=== PATIENT | female | born 1995 | race Hispanic/Latino ===

== ENCOUNTER 2018-04-18 15:47 | Day surgery (SDC) | payer OTHER ==
[2018-04-18 16:18] VITALS: BMI 35.3
--- NOTE | 2018-04-18 16:30 | PDOC.LDHP ---
Labor and Delivery H&P Chief complaint: other ( decels during NST in clinic) HPI: Pt is 22 yo with di-di twins at 37.0wks by LMP and 13.5 wk US presented for routine BPP/NST at clinic. Found to have two decels in baby A with one being a late decel and another more difficult to determine as the tracing cut off during the decel. No changes in movement. Denies vaginal bleeding or loss of fluid. Feeling occasional lower abdominal cramping but nothing sustained. She was recently complaining of itching with normal bile acid levels among other labs. She is scheduled for C/S next week. Current gestational age (weeks): 37 Due date: 05/08/18 Dating criteria: last menstrual period, first trimester ultrasound Grav: 2 Para: 1 OB History Details: One prior vaginal delivery in ' at term; uncomplicated Current complications: di/di twins, breech (Twin A), other (anemia in preg) Abnormal US findings: Yes (Twin A is breech) Past Medical History: none Current medications: pre- vitamins, iron Previous surgical history: none Allergies/Adverse Reactions: Allergies Allergy/AdvReac Type Severity Reaction Status Date / Time No Known Allergies Allergy Verified 04/18/18 16:12 Social history: none - Physical Exam Vital signs reviewed and normal: yes General: NAD, resting Heart: other (3/6 systolic murmur (chronic)) Lungs: nonlabored breathing Abdomen: gravid Extremeties: no edema FHT: category 1 (Baby A and B), variability present [place] contractions every: none - OB Labs Blood type: A RH: positive Antibody Screen: negative HIV: negative RPR: negative HEPSAg: negative 1 hour GCT: negative GBS: negative Urine drug screen: not done Rubella: immune Additional Labs: bile acids neg; GC/C neg - Assessment decelerations - Plan Plan: observation in L&D (BPP not performed in clinic due to 2 decels in Twin A. Will obtain that and order NST/continuous monitoring to ensure no issues. NST reactive. D/c pending BPP and no further decels.)
--- NOTE | 2018-04-18 17:20 | ULT ---
ULTRASOUND BIOPHYSICAL PROFILE 04/18/18 HISTORY: Decreased movement and decelerations. FINDINGS: A single live intrauterine gestation is seen with a heart rate of 168 beats per minute. BRAIN neto sures 10.7 cm. position is transverse. OB BIOPHYSICAL PROFILE: tone: 2 breathin movement: 2 Amniotic fluid: 2 IMPRESSION: Ultrasound biophysical profile score is 8 out of 8. POS: [facility]
== END 2018-04-18 17:14 | disposition home or self-care (01) ==
LOC: L&D/OP 15:47
PROVIDERS: ATTEND Family Medicine
DX: O36.8332 Maternal care for abnormalities of the fetal heart rate or rhythm, third trimester, fetus 2 (principal); Z3A.37 37 weeks gestation of pregnancy
CPT/HCPCS: 59025; 76819; 99281

== ENCOUNTER 2018-04-24 01:37 | Inpatient (IN) | payer OTHER ==
--- NOTE | 2018-04-23 20:06 | PDOC.LDHP ---
Labor and Delivery H&P Chief complaint: contractions, loss of fluid Current gestational age (weeks): 38 (0) - Physical Exam General: NAD, breathing through contractions Heart: RRR Lungs: CTAB Abdomen: gravid Extremeties: no edema FHT: category 2, variable decelerations, variability present [place] contractions every: 2-4min - Vaginal Exam cm dilated: 1 Effacement: 0% Station: -3 - Assessment L&D Assessment: term rupture in membranes at 38.0 by LMP/13w u/s was scheduled for section today but came in with ROM and ctx q2-4min. Plan for urgent csection. - Plan Plan: to OR for section <Elza Herzog 04/24/18 08:17> <Leonard Cordero 04/24/18 08:17> HPI: Francheska Gagnon is a 23 yo di/di twin gestation @ 38.0wks by a 13.5 wk US presents with fluid loss since 0100 today and contractions since 0200 every 203 minutes. She was scheduled for a primary csection 2/2 breech and transverse presentation this morning at 0730. Endorses mild vaginal bleeding and good movement. Denies vaginal discharge. Current gestational age (weeks): 37 (37.6) Due date: 05/08/18 Dating criteria: last menstrual period (c/w 13.5wk US2) Grav: 2 Para: 1 (1001) OB History Details: Prior delivery on 01/23/2014: , male, no complications, 7 lbs 3 ounces, 8 hours of labor at [facility], delivered at 38 weeks gestation [employer] hx: NILM pap smear 11/2017 Current complications: di/di twins, other (anemia of ) Abnormal US findings: No (Baby A-transverse with posterior placenta; Baby B- transverse/anterior plac ) Past Medical History: none Current medications: pre-trini vitamins, iron Previous surgical history: none Social history: none - Physical Exam Vital signs reviewed and normal: yes General: NAD, breathing through contractions Heart: RRR Lungs: CTAB Abdomen: gravid Extremeties: no edema FHT: category 2, variable decelerations, variability present - OB Labs Blood type: A RH: positive Antibody Screen: negative HIV: negative RPR: negative HEPSAg: negative 1 hour GCT: negative GBS: negative Urine drug screen: not done Rubella: immune Additional Labs: bile acids negative; Gonorrhea/chlamydia negative - Assessment L&D Assessment: term rupture in membranes - Plan Plan: to OR for section -: 23 yo di di twin gestation presents with loss of fluid and contractions @ 38wks by a 13.5 wk US admitted for a primary section. 1.)Di Di twin gestation, term- -admit to OR for urgent cs. Ampicillin to be given prior to delivery. Will order an initial cbc with repeat post delivery. Will plan for routine cs care. Risk and benefits of procedure explained to pt; pt understood. Mom plans to breastfeed. 2.)Anemia of - -Will order an initial cbc with repeat post delivery -Will restart iron and bowel regimen post delivery <Aishwarya Noonan - Last Filed: 04/24/18 08:17> Allergies/Adverse Reactions: Allergies Allergy/AdvReac Type Severity Reaction Status Date / Time No Known Allergies Allergy Verified 04/24/18 02:24 Review of Systems - Review of Systems Constitutional: denies: chills, diaphoresis, fever Eyes: reports: no symptoms reported ENT: reports: no reported symptoms Cardiovascular: reports: no reported symptoms. denies: chest pain, edema Respiratory: denies: bloody sputum, cough, short of breath, chest tightness GI: denies: nausea, vomiting, diarrhea, constipation Genital Sexual: denies: dysuria, incontinence, nocturia [employer]: reports: vaginal bleeding, pain, other (loss of fluid). denies: vaginal discharge, pruritis Neuro/Psych: denies: headache, paresthesia, seizure, depression, anxiety, emotional problems Musculoskeletal/Skin: denies: back pain, neck pain Endocrine: denies: polydipsia, polyphagia, diaphoresis <Aishwarya Noonan - Last Filed: 04/24/18 08:17> Attending Addendum - Attending Addendum Date/Time: 04/24/18 [id number] I personally evaluated the patient and discussed the management with Dr. Herzog , Vishal, Blue, and Gary. I agree with the History, Examination, Assessment and Plan documented above with any addition or exceptions noted below. Dr Vega to supervise residents for . I will assist as needed. <Leonard Cordero 04/24/18 08:17>
[2018-04-24] MEDS ORDERED: Docusate 100 MG CAP PO PRN (02:44)
[2018-04-24] MEDS ORDERED: Promethazine HCl 25 MG/ML VIAL IM PRN ×2 (02:44→06:26)
[2018-04-24] MEDS ORDERED: Ondansetron HCl/PF 4 MG/2 ML Vial IVP PRN ×2 (02:44→06:26)
[2018-04-24] MEDS ORDERED: Acetaminophen 500 MG TAB PO PRN (02:44)
--- NOTE | 2018-04-24 02:50 | PDOC.LDHP ---
Labor and Delivery H&P Chief complaint: contractions, loss of fluid HPI: Patient is a 23yo at 38.0 by LMP/13.5w u/s presents to L&D with LOF and ctx. Current gestational age (weeks): 38 (0) Dating criteria: last menstrual period, first trimester ultrasound Grav: 2 Para: 1 OB History Details: Anemia in Cardiac murmur present since childhood Current complications: di/di twins, breech Past Medical History: FHx: younger brother with congenital defect of L arm sister with congenital heart mother Current medications: pre-trini vitamins, iron Allergies/Adverse Reactions: Allergies Allergy/AdvReac Type Severity Reaction Status Date / Time No Known Allergies Allergy Verified 04/24/18 02:24 Social history: none, other (Lives with parents and siblings)
[2018-04-24 02:56] LABS: Mean Corpuscular HGB CONC 35.7 g/dL (32.0-36.0); Mean Corpuscular Hemoglobin 34.5 pg (27.0-31.0); Mean Corpuscular Volume 96.6 fL (78.0-98.0); Platelet Count 260 thou/uL (130-400); RBC Distribution Width 12.1 % (11.5-14.5); Red Blood Cell (RBC) Count 3.47 mill/uL (4.20-5.40); White Blood Cell (WBC) Count 8.5 thou/uL (4.8-10.8)
[2018-04-24] MEDS ORDERED: Bicitra 30 ML UDCUP PO SCH (03:15)
[2018-04-24] MEDS ORDERED: CEFAZOLIN/Water 2 GM/20 ML SYRINGE SLOW IVP SCH (03:15)
[2018-04-24] MEDS: Lactated Ringer's 1,000 ML IV SCH (03:28)
[2018-04-24 03:30] LABS: Hep B Surf Ag Non-Reactive S/CO (NonReactive)
[2018-04-24] MEDS ORDERED: Azithromycin 500 MG in Sodium Chloride 0.9% 250 ML 250 ML IVPB SCH (04:00)
--- NOTE | 2018-04-24 04:40 | PDOC.EVN ---
Event Note - Event Note Event Note: OBGYN FACULTY PREOP NOTE This case has been reviewed in person with Dr Dawit Cordero and Dr Aarti Mcarthur. In Brief, this is a patient of the residency clinic with known twins. Twin A has mal-presentation with transverse-breech presentation for A and BR for B. Membranes are ruptured at 38 weeks. We will proceed with primary CS. Zmax ordered along with Ancef per CSOAP data/ protocol. To OR when ready.
[2018-04-24 05:44] LABS: Syphilis Antibody Nonreactive (Nonreactive); Syphilis Antibody Index 0.06 S/CO (<1.00 Non-Reactive)
--- NOTE | 2018-04-24 06:04 | PDOC.OPDEL ---
OB Operative/Delivery Note Delivery Dr/Surgeon: Gary as Faculty (assisted with both deliveries); [place] Assist: Dr Dawit Cordero present and scrubbed in but did not physically assist Pre-Delivery Diagnosis: ruptured membrane, other (Twins with both BREECH (katelin) ) Weeks gestation: 38 Anesthesia: spinal - Findings A Sex: female B Sex: female - Additional Findings/Plan Placenta delivered: spontaneous (two placentas noted- dichorionic. Sent to path) findings: low transverse hysterotomy without extension, other (Both baby's were complete breech. I assisted with twin delivery of A by delivering the foot and bringing the buttocks through hysterotomy. Residents accompliahed rtwin B delivery. Both were atramautic without incident. Twin B delivered very shortly after A (see deliverey record for times). Clear amniotic fluid x 2. Umbilical arterial and venous gases sent X 2. Gases WNL.) Estimated blood loss: 700 Compilations/Other Findings: Both twins complete breech Hemostasis post repair Please see full OP note dictation per Resident(s) Post delivery plan: routine recovery
[2018-04-24 06:09] LABS: Actual Bicarbonate (HCO3a) 15.7 mEq/L (22-28); Actual Bicarbonate (HCO3v) 23 mEq/L (22-28); Base Excess -3.2 mEq/L (-2.0 to +3.0); Base Excess (BEa) -2.8 mEq/L (-2.0 to +3.0)
[2018-04-24 06:10] LABS: Actual Bicarbonate (HCO3v) 22 mEq/L (22-28); Base Excess -4.2 mEq/L (-2.0 to +3.0)
[2018-04-24 06:11] LABS: Actual Bicarbonate (HCO3a) 22.7 mEq/L (22-28); Base Excess (BEa) -6.4 mEq/L (-2.0 to +3.0)
[2018-04-24] MEDS ORDERED: Naloxone HCl 0.4 mg/ml Vial IV PRN (06:26)
[2018-04-24] MEDS ORDERED: diphenhydrAMINE 50 MG/ML VIAL IVP PRN (06:26)
[2018-04-24] MEDS ORDERED: Eucerin (Mineral Oil/Petrolatum,White) 30 gm Jar TOP PRN (06:26)
[2018-04-24] MEDS ORDERED: Naloxone HCl 0.4 mg/ml Vial IVP PRN ×2 (06:26)
[2018-04-24] MEDS ORDERED: Promethazine HCl 25 MG SUPP PR PRN (06:26)
[2018-04-24] MEDS ORDERED: Communication Order-Pharmacy FS SCH (06:30)
[2018-04-24] MEDS ORDERED: Simethicone Chewable 80 MG TAB PO PRN (06:31)
[2018-04-24] MEDS ORDERED: Adacel (T-DAP) 0.5 ML VIAL IM ONE (06:31)
[2018-04-24] MEDS ORDERED: Lanolin Ointment 7 GM TUBE TOP PRN (06:31)
[2018-04-24] MEDS ORDERED: HYDROcodone/Acetaminophen 5/325 mg Tablet PO PRN ×2 (06:31)
[2018-04-24] MEDS ORDERED: Misoprostol 200 MCG TAB PR SCH (06:45)
--- NOTE | 2018-04-24 06:52 | PDOC.OPDEL ---
OB Operative/Delivery Note Delivery Dr/Surgeon: Blue Golden Assist: Attending: Dr. Vega and Dr. Cordero Pre-Delivery Diagnosis: ruptured membrane Procedure/Post Delivery Dx: primary low transverse CS Weeks gestation: 38 Anesthesia: spinal - Findings A Sex: female Weight: 15 lb 6.918 oz (7 lbs 1 oz) - 1 min: 8 - 5 min: 8 B Sex: female Weight: 15 lb 6.918 oz (7 lb 10 oz) - 1 min: 8 - 5 min: 8 - Additional Findings/Plan Placenta delivered: spontaneous findings: low transverse hysterotomy without extension Estimated blood loss: 700 Compilations/Other Findings: Procedure Note Date of Procedure: 04/24/2018 Resident Surgeon: Saran Rodgers Dye Can Operator Surgeon: Blue Attending Surgeon: Gil Vega Procedure: Repeat low transverse caesarean section Preoperative Diagnosis: 1)Term intrauterine 2.)Dichorionic Diamniotic twin gestation Postoperative Diagnosis: 1)1)Term intrauterine , delivered. 2.)Dichorionic Diamniotic twin gestation Anesthesia: spinal Indications: The patient is a 23year old G2,P1001 female with di di twin gestation at 38 wks by LMP c/w 13.5wk US who presents with loss of fluid and contractions, admitted for an urgent due to breech presentation of both fetuses. Procedure in Detail: After risks, benefits, and alternatives were explained to the patient, she gave informed consent. Pre-operative antibiotics included Cefazolin 2 gram IV and Azithromicin 500mg IV. The patient was taken to the operating room and spinal anesthesia was initiated. She was placed in the supine position with a left tilt and prepped and draped in usual sterile fashion. A Pfannenstiel incision was made with a scalpel and carried down to the level of the fascia. The fascial cut was extended bilaterally with Sevilla sissors. The inferior and superior edges of the cut fascial edges were elevated with Alber clamps and the underlying rectus muscles were sharply and bluntly dissected free. The recti were divided digitally and retracted manually. The peritoneum was entered bluntly and retracted manually. James O retractor was placed. A low transverse incision was made with the scalpel and the uterus was entered in the midline bluntly. The hysterotomy was extended manually in the cephalocaudal direction. Infant A was noted to be katelin breech and was easily delivered in the usual breech fashion. Mouth and nares were bulb suctioned. Cord clamped and cut and grossly normal female infant was handed to waiting nurse. Cord blood was obtained. The amniotic sac was then ruptured with an allis clamp. Baby B was found to be katelin breech and delivered in the usual breech fashion. Placenta for both Baby A and B were spontaneously delivered and found to be intact with 3 vessel cord. The uterus was closed with a running locking 1-0 Monocryl suture Chromic suture. This was followed by a running non-locking 1-0 monocryl imbricating suture and one figure of eight stitch was provided using a 0- Vicryl. Following this hemostasis was noted. The abdomen was irrigated with saline and suctioned free of clots. The peritoneum was closed with a 2-0 Chromic running nonlocking suture. The fascia was closed with a running non- locking 0-PDS suture. The subcutaneous tissue was closed with three simple interrupted stitches using Monocryl 4-0. The subcutaneous tissue was irrigated and there were no bleeders. The skin was approximated with a 4-0 Monocryl in the subcuticular fashion. Dermabond was applied. All counts were correct. The patient tolerated the procedure well and was taken to the recovery room in stable condition. Estimated Blood Loss: 700 ml Complications: None Specimens: Cord blood sent to lab for blood type Findings: Two grossly normal female infants with Apgars of 8 and 8 for both. Two grossly normal placentas each with 3 vessel cord. Drains: Peace to gravity draining clear urine with 800ml UOP. Post delivery plan: recovery in LICU <Aishwarya Noonan - Last Filed: 04/24/18 06:55> - Additional Findings/Plan Post delivery plan: routine recovery (ROUTINE RECOVERY) <Jas Vega - Last Filed: 04/24/18 07:28>
[2018-04-24] MEDS ORDERED: Misoprostol 200 MCG TAB ONE ×2 (07:00→07:04)
[2018-04-24] MEDS ORDERED: NS / Oxytocin 40 units/1000ml 1,000 ML ONE (07:45)
[2018-04-24] MEDS ORDERED: Ondansetron HCl/PF 4 MG/2 ML Vial ONE (08:37)
[2018-04-24] MEDS ORDERED: Ketorolac Tromethamine 30 MG/ML VIAL ONE (08:50)
[2018-04-24] MEDS: Ketorolac Tromethamine 30 MG/ML VIAL IVP PRN ×2 (08:52→22:32)
[2018-04-24] MEDS: Ferrous Sulfate 325 MG TAB PO SCH ×2 (11:01→22:29)
[2018-04-24] MEDS: Prenatal Vitamin 1 TAB PO SCH (11:01)
[2018-04-24] MEDS: Ibuprofen 800 MG TAB PO SCH ×2 (15:14→22:30)
[2018-04-25] MEDS: Ketorolac Tromethamine 30 MG/ML VIAL IVP PRN (03:04)
[2018-04-25] MEDS: Lactated Ringer's 1,000 ML IV SCH ×4 (03:05→18:35)
--- NOTE | 2018-04-25 07:21 | PDOC.PP ---
Post Progress Note Post Day #: 1 Subjective: 23 yo now delivered @ 38wks by LMP c/w 13.5wk US s/p primary low transverse section after admission for loss of fluid and contractions. Post op day 1. Doing well. No complaints. Mild pain. PO intake tolerated: yes Flatus: yes Ambulation: no Vital Signs (12 hours) Temp Pulse Resp BP 04/25/18 05:00 98.4 F 80 18 120/65 04/25/18 04:00 98.6 F 89 16 04/25/18 00:00 98.6 F 89 16 04/24/18 20:00 98.5 F 82 18 116/57 L Weight Weight 208 g - Physical Examination General: NAD Cardiovascular: no m/r/g, RRR Respiratory: clear to auscultation bilaterally Abdominal: + bowel sounds, lochia (mild, pea size clots), appropriately TTP Fundus firm & at: -1 Skin: CS incision dry & intact Neurological: no gross focal deficits Psychiatric: A&Ox3 Result Diagrams: 04/24/18 02:30 Additional Labs: Post Labs Blood Type A POSITIVE 04/24/18 02:30 Hep Bs Antigen Non-Reactive S/CO (NonReactive) 04/24/18 02:30 (1) Term delivered Code(s): O80 - ENCOUNTER FOR FULL-TERM UNCOMPLICATED DELIVERY Status: Acute (2) S/P primary low transverse Code(s): Z98.891 - HISTORY OF UTERINE SCAR FROM PREVIOUS SURGERY Status: Acute (3) Delivery by section for breech presentation Code(s): O32.1XX0 - MATERNAL CARE FOR BREECH PRESENTATION, UNSP Status: Acute (4) Twin gestation in third trimester Code(s): O30.003 - TWIN PREG, UNSP NUM PLCNTA & AMNIO SACS, THIRD TRIMESTER Status: Acute (5) Anemia affecting Code(s): O99.019 - ANEMIA COMPLICATING , UNSPECIFIED TRIMESTER Status : Acute - Assessment/Plan 23 yo [id number] di di twin gestation @ 38wks by a 13.5 wk US now s/p primary low transverse section. POD #1 1.)Di Di twin gestation, term, delivered -s/p primary LTCS, doing well -mild pain; ibuprofen 800mg TID shahida and norco prn -passing flatus; no bowel movement yet. Ordered docusate BID shahida -hernandez pulled and pt voiding adequately -plan to advance diet as tolerated. -monitor I/Os -hemagram pending -restarted iron BID and pnv -encourage ambulation as tolerated 2.)Anemia of - -repeat hemagram pending -restarted iron with docusate bid scheduled dispo: dc 48-72 hours
[2018-04-25] MEDS: Prenatal Vitamin 1 TAB PO SCH (08:15)
[2018-04-25] MEDS: Docusate 100 MG CAP PO SCH ×2 (08:15→20:29)
[2018-04-25] MEDS: HYDROcodone/Acetaminophen 5/325 mg Tablet PO PRN ×2 (08:16→14:14)
[2018-04-25] MEDS ORDERED: [UNRECOGNIZED DRUG - OTHER] PO SCH (09:00)
[2018-04-25] MEDS ORDERED: PRENATAL PO SCH (09:00)
[2018-04-25] MEDS ORDERED: IRON FU PO SCH (09:00)
[2018-04-25] MEDS ORDERED: Non-Formulary Item 1 EACH (Ferrous Sulfate [Iron] 325 MG) PO SCH (09:00)
[2018-04-25] MEDS: Ibuprofen 800 MG TAB PO SCH ×3 (09:20→20:29)
[2018-04-25] MEDS: Ferrous Sulfate 325 MG TAB PO SCH ×2 (09:21→20:29)
[2018-04-25 12:31] LABS: Hemoglobin 9.8 g/dL (12.0-16.0); Mean Corpuscular HGB CONC 34.9 g/dL (32.0-36.0); Mean Corpuscular Hemoglobin 34.1 pg (27.0-31.0); Mean Corpuscular Volume 97.9 fL (78.0-98.0); Mean Platelet Volume 7.1 fL (7.4-10.4); Platelet Count 209 thou/uL (130-400); RBC Distribution Width 12.4 % (11.5-14.5); Red Blood Cell (RBC) Count 2.87 mill/uL (4.20-5.40); White Blood Cell (WBC) Count 8.7 thou/uL (4.8-10.8)
--- NOTE | 2018-04-25 13:47 | PDOC.EVN ---
Event Note - Event Note Event Note: POD 1 OBGYN Staff patient seen at bedside No acute issues Full PN by Resident today VSS afebrile postop day 1 twin CS...doing well. Continue care.
--- NOTE | 2018-04-26 05:49 | PDOC.PP ---
Post Progress Note Post Day #: 2 Subjective: Doing well PO intake tolerated: yes Flatus: yes Ambulation: yes Vital Signs (12 hours) Temp Pulse Resp 04/25/18 20:00 97.9 F 67 20 Weight Weight 7.337 oz - Physical Examination General: NAD Cardiovascular: no m/r/g Respiratory: clear to auscultation bilaterally Abdominal: + bowel sounds, lochia, no distention, appropriately TTP Extremities: negative homans (B) Skin: CS incision dry & intact (sutured and DB) Neurological: no gross focal deficits Psychiatric: A&Ox3, normal affect Result Diagrams: 04/25/18 05:07 Additional Labs: Post Labs Blood Type A POSITIVE 04/24/18 02:30 Hep Bs Antigen Non-Reactive S/CO (NonReactive) 04/24/18 02:30 (1) S/P primary low transverse Code(s): Z98.891 - HISTORY OF UTERINE SCAR FROM PREVIOUS SURGERY Status: Acute (2) Term delivered Code(s): O80 - ENCOUNTER FOR FULL-TERM UNCOMPLICATED DELIVERY Status: Acute - Assessment/Plan Doing well on Postop day 2. As she was ruptured and had a CS, we will keep in obs today anfd watch temps. Likely home tomorrow AM, 04/27/18. Doing well now with no evidence ileus.
[2018-04-26] MEDS: Ibuprofen 800 MG TAB PO SCH ×3 (06:09→20:53)
[2018-04-26] MEDS: Lactated Ringer's 1,000 ML IV SCH ×3 (09:20→18:47)
[2018-04-26] MEDS: Ferrous Sulfate 325 MG TAB PO SCH ×2 (09:21→20:53)
[2018-04-26] MEDS: Docusate 100 MG CAP PO SCH ×2 (09:21→20:53)
[2018-04-26] MEDS: Prenatal Vitamin 1 TAB PO SCH (09:21)
[2018-04-26] MEDS: HYDROcodone/Acetaminophen 5/325 mg Tablet PO PRN ×2 (09:23→18:58)
--- NOTE | 2018-04-26 09:26 | PDOC.PP ---
Post Progress Note Post Day #: 2 Subjective: Feeling well- pain controlled. Ambulating and tolerating po. minimal bleeding. only maternal concern is in tandem. PO intake tolerated: yes Flatus: yes Ambulation: yes Vital Signs (12 hours) Temp Pulse Resp BP 04/26/18 07:45 98.5 F 69 20 112/60 Weight Weight 94.347 kg - Physical Examination General: NAD Cardiovascular: no m/r/g, RRR Respiratory: clear to auscultation bilaterally, non-labored breathing Abdominal: + bowel sounds, lochia (min lochia rubra), no distention, appropriately TTP Fundus firm & at: umbilicus Skin: CS incision dry & intact, no rash Perineum: dry Neurological: no gross focal deficits Psychiatric: A&Ox3, normal affect Result Diagrams: 04/25/18 05:07 Additional Labs: Post Labs Blood Type A POSITIVE 04/24/18 02:30 Hep Bs Antigen Non-Reactive S/CO (NonReactive) 04/24/18 02:30 (1) Delivery by section for breech presentation Code(s): O32.1XX0 - MATERNAL CARE FOR BREECH PRESENTATION, UNSP Status: Acute (2) S/P primary low transverse Code(s): Z98.891 - HISTORY OF UTERINE SCAR FROM PREVIOUS SURGERY Status: Acute (3) Term delivered Code(s): O80 - ENCOUNTER FOR FULL-TERM UNCOMPLICATED DELIVERY Status: Acute - Assessment/Plan PPD/POD#2 s/p PTLCS for di-di- twins in breech presentation. progressing with typical post-op & post- course. Plan to stay additional day to work on tandem and improve pain control. <Katelin De La Vega - Last Filed: 04/26/18 09:23> Vital Signs (12 hours) Temp Pulse Resp BP 04/26/18 07:45 98.5 F 69 20 112/60 Weight Weight 94.347 kg Result Diagrams: 04/25/18 05:07 Additional Labs: Post Labs Blood Type A POSITIVE 04/24/18 02:30 Hep Bs Antigen Non-Reactive S/CO (NonReactive) 04/24/18 02:30 <Lydia Castro - Last Filed: 04/26/18 18:34> Attending Addendum - Attending Addendum Date/Time: 04/26/18 0915 I personally evaluated the patient and discussed the management with Dr. De La Vega I agree with the History, Examination, Assessment and Plan documented above with any addition or exceptions noted below. pod #2 s/p 1`LTCS for twins and malpresentation- recovering well. Expect d/c tomorrow. <Lydia Castro - Last Filed: 04/26/18 18:34>
[2018-04-27] MEDS: Lactated Ringer's 1,000 ML IV SCH ×2 (05:55→11:02)
[2018-04-27] MEDS: HYDROcodone/Acetaminophen 5/325 mg Tablet PO PRN (05:57)
[2018-04-27] MEDS: Ibuprofen 800 MG TAB PO SCH (05:57)
--- NOTE | 2018-04-27 08:16 | PDOC.PP ---
Post Progress Note Post Day #: 3 Subjective: pain well controlled. able to ambulate normally. PO intake tolerated: yes Flatus: yes Ambulation: yes Weight Weight 94.347 kg - Physical Examination General: NAD Cardiovascular: no m/r/g, RRR Respiratory: clear to auscultation bilaterally, non-labored breathing Abdominal: lochia (min lochia rubra), no distention, appropriately TTP Fundus firm & at: below umbilicus Extremities: negative homans (B) Skin: CS incision dry & intact, no rash Perineum: dry Neurological: no gross focal deficits Psychiatric: A&Ox3, normal affect Result Diagrams: 04/25/18 05:07 Additional Labs: Post Labs Blood Type A POSITIVE 04/24/18 02:30 Hep Bs Antigen Non-Reactive S/CO (NonReactive) 04/24/18 02:30 (1) Delivery by section for breech presentation Code(s): O32.1XX0 - MATERNAL CARE FOR BREECH PRESENTATION, UNSP Status: Acute (2) S/P primary low transverse Code(s): Z98.891 - HISTORY OF UTERINE SCAR FROM PREVIOUS SURGERY Status: Acute (3) Term delivered Code(s): O80 - ENCOUNTER FOR FULL-TERM UNCOMPLICATED DELIVERY Status: Acute - Assessment/Plan PPD/POD#3 s/p PTLCS for di-di- twins in breech presentation. typical post-op & post- course with improvement in and pain control. Stable for d/c home today with pp visit in 2 wks at [facility] with Dr. Rodgers. <Katelin De La Vega - Last Filed: 04/27/18 08:16> Vital Signs (12 hours) Temp Pulse Resp BP 04/27/18 07:50 97.9 F 68 18 106/64 Weight Weight 94.347 kg Result Diagrams: 04/25/18 05:07 Additional Labs: Post Labs Blood Type A POSITIVE 04/24/18 02:30 Hep Bs Antigen Non-Reactive S/CO (NonReactive) 04/24/18 02:30 <Lydia Castro - Last Filed: 04/27/18 12:51> Attending Addendum - Attending Addendum Date/Time: 04/27/18 08 I personally evaluated the patient and discussed the management with Dr. De La Vega I agree with the History, Examination, Assessment and Plan documented above with any addition or exceptions noted below. pod#3- recovering well. Stable for d/c home. <Lydia Castro - Last Filed: 04/27/18 12:51>
[2018-04-27 08:51] VITALS: BP 106/64; TEMP 97.9
[2018-04-27] MEDS: Docusate 100 MG CAP PO SCH (09:42)
[2018-04-27] MEDS: Prenatal Vitamin 1 TAB PO SCH (09:42)
[2018-04-27] MEDS: Ferrous Sulfate 325 MG TAB PO SCH (09:42)
== END 2018-04-27 12:30 | disposition home or self-care (01) | DRG 765 ==
LOC: L&D/OP 01:37 → L&D 02:14 → 3SW 10:54
PROVIDERS: ADMIT Family Medicine; ATTEND Family Medicine
PROC: 10D00Z1 Extraction of Products of Conception, Low, Open Approach (ICD-10-PCS; principal; 2018-04-24)
DX: O32.1XX1 Maternal care for breech presentation, fetus 1 (principal); O30.043 Twin pregnancy, dichorionic/diamniotic, third trimester; O32.1XX2 Maternal care for breech presentation, fetus 2; O76 Abnormality in fetal heart rate and rhythm complicating labor and delivery; Z37.2 Twins, both liveborn; Z3A.38 38 weeks gestation of pregnancy; O99.02 Anemia complicating childbirth; D64.9 Anemia, unspecified
CPT/HCPCS: 51702; 76815; 82805; 85027; 86780; 86850; 86900; 86901; 87340; 88307; 99285; J0456; J1885; J2405; J7050

== ENCOUNTER 2023-08-30 17:59 | Emergency (ER) | payer OTHER, SELFPAY ==
[2023-08-30] MEDS ORDERED: Metoclopramide HCl 10 MG/2 ML VIAL ONE (18:30)
[2023-08-30] MEDS ORDERED: diphenhydrAMINE 50 MG/ML VIAL ONE (18:30)
[2023-08-30] MEDS ORDERED: Ketorolac Tromethamine 30 MG/ML VIAL ONE (18:30)
[2023-08-30 18:45] LABS: #Basophils 0.1 thou/uL (0.0-0.2); #Eosinphils 0.2 thou/uL (0.0-0.7); #Monocytes 0.5 thou/uL (0.11-0.59); #Neutrophils 3.7 thou/uL (1.40-6.50); %Basophils 0.7 % (0.0-1.0); %Eosinophils 2.2 % (0.0-10.0); %Lymphocytes 41.6 % (21.0-51.0); %Monocytes 7.1 % (0.0-10.0); %Neutrophils 48.3 % (42.0-75.0); Hematocrit 38.3 % (36.0-47.0); Hemoglobin 13.1 g/dL (12.0-16.0); Mean Corpuscular HGB CONC 34.2 g/dL (32.0-36.0); Mean Corpuscular Hemoglobin 32.2 pg (27.0-31.0); Mean Corpuscular Volume 94.1 fl (78.0-98.0); Mean Platelet Volume 9.6 fL (7.4-10.4); Platelet Count 326 10x3/uL (130-400); RBC Distribution Width 11.5 % (11.5-14.5); Red Blood Cell (RBC) Count 4.07 mill/uL (4.20-5.40); White Blood Cell (WBC) Count 7.7 10x3/uL (4.8-10.8)
[2023-08-30 18:55] LABS: BHCG - Serum Negative (NEGATIVE); Pregs Control Background? CLEAR/WHITE (CLR/WHITE); Pregs Control Bar Appear? YES (CONTROL BAR)
[2023-08-30 19:12] LABS: ALT (SGPT) 13 U/L (8-55); AST (SGOT) 16 U/L (5-34); Albumin 4.8 g/dL (3.5-5.0); Alkaline Phosphatase 45 U/L (40-110); Anion Gap 14 mmol/L (10-20); BUN (Urea Nitrogen) 10 mg/dL (7.0-18.7); Bilirubin, Total 0.4 mg/dL (0.2-1.2); CK (CPK) 115 U/L (29-168); Calc. Creatinine Clearance 0 mL/min (70-130); Calcium 9.2 mg/dL (7.8-10.44); Carbon Dioxide 24 mmol/L (22-29); Chloride 104 mmol/L (98-107); Estimated GFR 119; Globulin 2.7 g/dL (2.4-3.5); Glucose 95 mg/dL (70-105); Potassium 3.6 mmol/L (3.5-5.1); Protein, Total 7.5 g/dL (6.0-8.3); Sodium 138 mmol/L (136-145)
== END 2023-08-30 21:00 | disposition home or self-care (01) ==
LOC: ERS 17:59
DX: R20.2 Paresthesia of skin (principal); R51.9 Headache, unspecified
CPT/HCPCS: 70450; 80053; 82550; 84703; 85025; 96365; 96366; 96375; J1200; J1885; J2765